=== PATIENT | female | born 1950 | race Caucasian/White ===

== ENCOUNTER → 2019-05-26 16:12 | Outpatient (CLI) | payer MEDICARE, OTHER, SELFPAY ==
--- NOTE | 2019-05-26 | DI.MG.S_ITS ---
BILATERAL DIGITAL SCREENING MAMMOGRAM 3D/2D WITH CAD: 05/26/2019 CLINICAL: Routine screening. Family history of breast cancer. Comparison is made to exams dated: 08/05/2017 mammogram, 08/23/2015 mammogram, and 03/21/2014 mammogram - [facility]. There are scattered fibroglandular elements in both breasts. Current study was also evaluated with a Computer Aided Detection (CAD) system. There are mole markers on the left breast. No significant masses, calcifications, or other findings are seen in either breast. There has been no significant interval change. IMPRESSION: NEGATIVE There is no mammographic evidence of malignancy. A 1 year screening mammogram is recommended. This exam was interpreted at Station ID: [id number]. NOTE: For mammograms, a report in lay terms will be sent to the patient. Approximately 15% of breast malignancies will not be visualized mammographically. In the management of a palpable breast mass, a negative mammogram must not discourage biopsy of a clinically suspicious lesion. Electronically Signed By: Jake huitron/bhavin:05/27/2019 05:12:05 letter sent: Normal Exam ACR BI-RADS Category 1: Negative 3341F
== END ==
PROVIDERS: PCP Family Medicine; Visit Provider Family Medicine
DX: Z12.31 Encounter for screening mammogram for malignant neoplasm of breast (principal); Z80.3 Family history of malignant neoplasm of breast
CPT/HCPCS: 77063; 77067

== ENCOUNTER → 2020-10-15 11:54 | Outpatient (CLI) | payer MEDICARE, OTHER, SELFPAY ==
--- NOTE | 2020-10-15 11:55 | DI.RAD.S_ITS ---
PROCEDURE: XR LUMBAR SPINE MIN 4V INDICATIONS: Right lower extremity radiculopathy TECHNIQUE: 5 views of the lumbar spine were acquired, including bilateral oblique views. COMPARISON: None. FINDINGS: Bones: 5 nonrib-bearing vertebrae are present. There is normal bony alignment. No vertebral body compression fractures. No suspicious bony lesions. Moderate L5-S1 degenerative disc disease. Mild L1-L2, L2-L3, L3-L4 and L4-L5 degenerative disc disease. Moderate L3-L4, L4-L5 and L5-S1 facet arthropathy. Mild L2-L3 facet arthropathy. Soft tissues: Overlying bowel gas pattern is normal. No suspicious soft tissue calcifications. Oblique images: No pars defects. IMPRESSION: 1. Multilevel degenerative disc disease. 2. Multilevel facet arthropathy. 3. No fracture. No acute osseous lesion. If symptoms and/or clinical suspicion for pathology persists, evaluation with MRI should be considered for further assessment. Dictated by: Ling Landers MD, PhD on 10/15/2020 at 13:05 Approved by: Ling Landers MD, PhD on 10/15/2020 at 13:07
== END ==
PROVIDERS: PCP Family Medicine; Referring Provider Physical Medicine & Rehabilitation; Visit Provider Physical Medicine & Rehabilitation
DX: M51.16 Intervertebral disc disorders with radiculopathy, lumbar region (principal); M51.17 Intervertebral disc disorders with radiculopathy, lumbosacral region; M47.26 Other spondylosis with radiculopathy, lumbar region; M47.27 Other spondylosis with radiculopathy, lumbosacral region; R26.81 Unsteadiness on feet
CPT/HCPCS: 72110; 99214

== ENCOUNTER → 2020-10-18 14:47 | Outpatient (CLI) | payer MEDICARE, OTHER, SELFPAY ==
--- NOTE | 2020-10-18 14:51 | DI.MRI.S_ITS ---
PROCEDURE: MR LUMBAR SPINE WO CON INDICATIONS: L5 radiculopathy [id number] TECHNIQUE: Noncontrast sagittal T1 spin echo and T2 fast echo, sagittal STIR, axial T1 and T2 fast spin echo through the lumbar spine. In cases with scoliosis, additional coronal T2 fast spin echo may be performed. COMPARISON: [facility], CT, ABDOMEN/PELVIS WITH CONTRAST, 07/29/2017, 10:29. [facility], CR, XR LUMBAR SPINE WITH OBLIQUES, 04/05/2018, 9:34. [facility], CR, XR LUMBAR SPINE MIN 4V, 10/15/2020, 12:02. FINDINGS: Image quality: Excellent. Alignment and Curvature: There is minimal retrolisthesis seen at the L5-S1 level. Bone Marrow: Marrow is of normal overall signal. Scattered foci are seen, which are hyperintense on T1-weighted and T2-weighted imaging, which are most consistent with benign vertebral body hemangiomas. No acute vertebral body compression fractures. Spinal Cord: Conus medullaris terminates at the L1 level. Visualized cord demonstrates normal signal and size. Paraspinous Soft Tissues: No paravertebral masses. T12-L1: Normal appearance. L1-L2: No significant abnormality is seen. L2-L3: Jlre-kn-tgxgdixy loss of disc height and disc signal can be seen. Mild to moderate disc bulge is seen. There is mild left-sided and nhpd-lu-ilggsugn right-sided neural foraminal narrowing seen. Mild central canal narrowing is seen. L3-L4: Mild loss of disc height is seen. Loss of disc signal is seen. Mild to moderate disc bulge is seen. There is at least moderate facet hypertrophy seen. Associated hypertrophy of the ligamentum flavum can be seen. There is bvgl-gf-qyloyoee right-sided and no significant left-sided neural foraminal narrowing seen. Moderate central canal narrowing is seen. L4-L5: The disc height is well-preserved. Loss of disc signal is seen at this level. Moderate disc bulge is seen, which is eccentric to the right. There is a right foraminal disc protrusion, as on series 4 image 26 and on series 2, image 6. There is a focal annular fissure seen posteriorly. Moderate facet hypertrophy is seen, right worse than left. There is moderate right-sided and bwfn-ck-mfhepizy left-sided neural foraminal narrowing seen. Moderate central canal narrowing is seen. L5-S1: Moderate loss of disc height is seen. Loss of disc signal is seen. Reactive marrow endplate changes are seen, which demonstrate mixed T1 weighted and T2-weighted signal, and are attributed to a combination of edema and fatty metaplasia (Modic type I and Modic type II changes). Mild to moderate disc bulge is seen at this level. Mild facet joint hypertrophy is seen. Mild bilateral neural foraminal narrowing is seen. No significant central canal narrowing can be seen. IMPRESSION: Multiple levels of lumbar spine degenerative change are seen. Dictated by: Dimitry Dhaliwal M.D. on 10/18/2020 at 15:56 Approved by: Dimitry Dhaliwal M.D. on 10/18/2020 at 16:01
== END ==
PROVIDERS: PCP Family Medicine; Referring Provider Physical Medicine & Rehabilitation; Visit Provider Physical Medicine & Rehabilitation
DX: M47.26 Other spondylosis with radiculopathy, lumbar region (principal)
CPT/HCPCS: 72148

== ENCOUNTER → 2020-10-22 14:36 | Outpatient (CLI) | payer MEDICARE, OTHER, SELFPAY ==
[2020-10-22 16:23] LABS: COVID19 -Nasal RAPID Negative (Negative)
== END ==
PROVIDERS: PCP Family Medicine; Visit Provider Physical Medicine & Rehabilitation
DX: Z20.822 Contact with and (suspected) exposure to COVID-19 (principal)
CPT/HCPCS: 87635; C9803

== ENCOUNTER 2020-10-23 13:24 | Outpatient (CLI) | payer MEDICARE, OTHER, SELFPAY ==
[2020-10-23] VITALS (8 sets, daily range): BP systolic 101–139; BP diastolic 59–86; PULSE 79–103; RESP 16–30; TEMP 36.3; O2SAT 95–100
--- NOTE | 2020-10-23 13:26 | DI.RAD.S_ITS ---
PROCEDURE: PAIN L/S TRANSFORAMINAL INJECT INDICATIONS: SPONDYLOSIS COMPARISON: [facility], CR, XR LUMBAR SPINE MIN 4V, 10/15/2020, 12:02. [facility], MR, MR LUMBAR SPINE WO CON, 10/18/2020, 15:39. FINDINGS: Fluoroscopic spot filming was performed to verify placement of a spinal needle at the L5-S1 level, as labeled on the films. Appropriate location of the needle tip was confirmed by injection of iodinated contrast. IMPRESSION: No significant intraprocedural abnormality. Dictated by: Dimitry Dhaliwal M.D. on 10/23/2020 at 14:50 Approved by: Dimitry Dhaliwal M.D. on 10/23/2020 at 14:50
[2020-10-23] MEDS: MIDAZOLAM 5 MG/5 ML VIAL IV (14:20)
[2020-10-23] MEDS: fentaNYL 100 MCG/2 ML INJ 50 MCG IV (14:20)
[2020-10-23] MEDS: BUPIVACAINE 0.25% (PF) VIAL 2 ML INJ (14:26)
[2020-10-23] MEDS: BETAMETHASONE 30 MG/5 ML MDV 6 MG INJ (14:26)
[2020-10-23] MEDS: IOPAMIDOL 15 ML VIAL 3 ML INJ (14:26)
[2020-10-23] MEDS: DEXAMETHASONE 10 MG/ML VIAL 20 MG INJ (14:27)
--- NOTE | 2020-10-23 14:33 | PM.PROC.IR.1 ---
Date/Time/Diagnoses Date of procedure: 10/23/20 Time of procedure: 14:33 Pre-procedure diagnosis: 1. FORAMINAL STENOSIS WITH LE SYMPTOMS Post-procedure diagnosis: same Procedure Notes Procedure: 1. FLUOROSCOPICALLY GUIDED CONTRAST CONTROLLED TRANSFORAMINAL EPIDURAL STEROID INJECTION - RIGHT L5/S1 TFESI Indications: Sanjana is referred by Dr. Preston for treatment of Foraminal Stenosis with right LE Symptoms Physician: Jareth Carrera Total Fluoroscopy time (seconds): 8 Total sedation minutes: 10 Complications: none Procedure in detail & Post-procedure care: FINDINGS Foraminal Nerve Root Compression secondary to disc disease and facet hypertrophy DESCRIPTION OF PROCEDURE Following review of allergy and review of potential side effects and complications, including, but not necessarily limited to, infection, allergic reaction, local tissue breakdown, stroke, temporary or permanent nerve injury, paralysis, and possible , the patient indicated that the patient understood and agreed to proceed. An informed consent document was signed by the patient, witnessed by a nurse, and placed in the patient's chart. Additionally, other treatment options including medications, modalities, and physical therapy were reviewed with the patient. After review of previous anaesthesic history and IV conscious sedation the patient was deemed safe to proceed with today?s procedure with IV conscious sedation as ASA class II designation. Safety time-out was performed to confirm patient ID, procedure to be performed and site of procedure. IV sedation was accomplished with a combination of 3mg of Versed and 50mcg of Fentanyl was administered by the RN after DO order, titrated to patient comfort during the course of the procedure while the patient remained responsive to all verbal commands In the prone position following sterile prep and drape of the lumbar region, the right L5/S1 posterior neuroforamen was identified fluoroscopically. The skin was anesthetized via a 25-gauge 1.5-inch needle with 1% lidocaine solution. At this point, a 25-gauge 3.5-inch spinal needle was atraumatically introduced and advanced under fluoroscopic guidance through the posterior right L5/S1 neuroforamen to approximately the anterior aspect of the canal. Depth was confirmed on lateral view. Following negative aspiration, injection of approximately 1.5cc of Isovue 200 under live fluoroscopy in the AP view confirmed excellent flow along the nerve root, into the epidural space without vascular or intrathecal uptake observed Radiological data, including multiple fluoroscopic views of the lumbosacral spine, reveal a spinal needle at the right L5/S1 posterior neuroforamen. Subsequent views show flow of contrast material flowing superiorly and inferiorly along the nerve root confirming epidural flow. Subsequently, a test dose of 1.5cc of 1% lidocaine solution was administered and patient was observed for two minutes for signs or symptoms of complications, including abdominal pain, shortness of breath, bilateral upper or lower extremity weakness, nausea and vomiting, prior to steroid injection. At this point, a total of 3cc or 20mg of dexamethasone and 6mg betamethasone was injected without incident. The procedure tolerated the procedure well without signs or symptoms of complications prior to transfer to the recovery area continued monitoring without incident. The patient was then transferred to the recovery area where they were observed for an appropriate time after the injection. The patient reported a VAS score of 7 prior to the procedure and a post-procedure VAS of 0. POST OP INSTRUCTIONS The patient was provided a Pain Log to continue to record their response to the target-specific procedure prior to follow-up visit with their referring physician. Additionally, specific post-injection care instructions and a contact number to our office were provided if concerns arise regarding possible complications associated with the procedure are suspected.
== END 2020-10-23 14:55 | disposition home or self-care (01) ==
LOC: RAD 13:25
PROVIDERS: PCP Family Medicine; Referring Provider Physical Medicine & Rehabilitation; Visit Provider Physical Medicine & Rehabilitation
DX: M48.07 Spinal stenosis, lumbosacral region (principal); M51.17 Intervertebral disc disorders with radiculopathy, lumbosacral region
CPT/HCPCS: 64483; 99152; J0702; J1100; J2250; J3010

== ENCOUNTER → 2021-08-17 13:14 | Outpatient (CLI) | payer MEDICARE, OTHER, SELFPAY ==
--- NOTE | 2021-08-17 13:15 | DI.MG.S_ITS ---
BILATERAL DIGITAL SCREENING MAMMOGRAM 3D/2D WITH CAD: 08/17/2021 CLINICAL: Routine screening. Family history of breast cancer. Comparison is made to exams dated: 05/26/2019 mammogram, 08/05/2017 mammogram, and 08/23/2015 mammogram - [facility]. There are scattered fibroglandular elements in both breasts. Current study was also evaluated with a Computer Aided Detection (CAD) system. There are mole markers on the left breast. No significant masses, calcifications, or other findings are seen in either breast. There has been no significant interval change. IMPRESSION: NEGATIVE There is no mammographic evidence of malignancy. A 1 year screening mammogram is recommended. This exam was interpreted at Station ID: [id number]. NOTE: For mammograms, a report in lay terms will be sent to the patient. Approximately 15% of breast malignancies will not be visualized mammographically. In the management of a palpable breast mass, a negative mammogram must not discourage biopsy of a clinically suspicious lesion. Electronically Signed By: Heber whitten/bhavin:08/19/2021 07:49:21 letter sent: Normal Exam ACR BI-RADS Category 1: Negative 3341F
== END ==
PROVIDERS: PCP Family Medicine; Referring Provider Family Medicine; Visit Provider Family Medicine
DX: Z12.31 Encounter for screening mammogram for malignant neoplasm of breast (principal); Z80.3 Family history of malignant neoplasm of breast
CPT/HCPCS: 77063; 77067

== ENCOUNTER → 2021-08-21 09:57 | Outpatient (CLI) | payer MEDICARE, OTHER, SELFPAY ==
--- NOTE | 2021-08-21 | DI.RAD.S_ITS ---
PROCEDURE: XR DEXA AXIAL SKELETON INDICATIONS: Asymptomatic menopausal state COMPARISON: None. FINDINGS: This blank DEXA report has been sent in error by the PACS system. The correct and complete report will be forthcoming in 1-2 days. Thank you for your patience and understanding. Dictated by: Ling Landers MD, PhD on 08/21/2021 at 18:23 Approved by: Ling Landers MD, PhD on 08/21/2021 at 18:23
== END ==
PROVIDERS: PCP Family Medicine; Referring Provider Family Medicine; Visit Provider Family Medicine
DX: Z78.0 Asymptomatic menopausal state
CPT/HCPCS: 77080

== ENCOUNTER 2021-09-13 09:50 | Outpatient (CLI) | payer MEDICARE, OTHER, SELFPAY | END 2022-01-15 13:38 | disposition home or self-care (01) | LOC: PHYS 09:50 | PROVIDERS: Family Provider Family Medicine; PCP Family Medicine; Referring Provider Physical Medicine & Rehabilitation; Visit Provider Physical Medicine & Rehabilitation | DX: G57.31 Lesion of lateral popliteal nerve, right lower limb (principal); R26.81 Unsteadiness on feet | CPT/HCPCS: 95886; 95910 ==

== ENCOUNTER → 2021-10-07 11:33 | Outpatient (CLI) | payer MEDICARE, OTHER, SELFPAY ==
--- NOTE | 2021-10-07 | DI.MRI.S_ITS ---
PROCEDURE: MR LOWER LEG RT WO/W CON INDICATIONS: NEURITIS OF FOOT, RIGHT TECHNIQUE: Noncontrast coronal T1 spin echo and STIR, sagittal T1 spin echo with fat saturation and STIR, axial T1 spin echo and T2 fast spin echo with fat saturation. After the administration of contrast, axial/sagittal/coronal T1 spin echo with fat saturation through the right lower extremity . COMPARISON: None. FINDINGS: Image quality: Excellent. Bones: The visualized bone marrow demonstrates normal signal on all sequences. The overlying cortex appears intact. No abnormal intraosseous enhancement. Soft tissues: No soft tissue masses are visualized. The scanned muscles demonstrate normal overall bulk and internal signal. Subcutaneous tissues appear normal as well. No abnormal soft tissue enhancement. IMPRESSION: No appreciable muscle atrophy or evidence of denervation. Dictated by: Gabriel King M.D. on 10/07/2021 at 13:16 Approved by: Gabriel King M.D. on 10/07/2021 at 13:32
--- NOTE | 2021-10-07 14:58 | DI.ECHO.S_ITS ---
[facility] +---------+ : : [address] : : : : [id number] : : : : Phone: [phone]+ Echocardiogram Report + + :Name: CASSIE ABDI Study Date: 10/07/2021 Height: 69.5 in: :[facility] ReadingLocation: Weight: 183 lb : : Gender: Female BSA: 2.0 m2 : :: 1950 Age: 71 yrs BP: 137/8 mmHg : :Reason For Study: Hypertension : :Ordering Physician: Dr. Phelps : :Mohan Performed By: Anam Zamora : :Referring: Dr. Mattie Preston : + + Interpretation Summary Mild concentric left ventricular hypertrophy with ejection fraction 60-65%. Mild aortic valve sclerosis. Mild aortic regurgitation. Mild mitral annular calcification. Mildly enlarged ascending aorta. Procedure: A two-dimensional transthoracic echocardiogram with color flow and Doppler was performed. The study quality was technically adequate. There is no prior echocardiogram noted for this patient. The patient was in sinus tachycardia with heart rates between 88 - 100 bpm during the exam. Left Ventricle: The left ventricle is normal in size. There is mild concentric left ventricular hypertrophy. The ejection fraction is estimated to be 60-65%. There are no focal wall motion abnormalities. Right Ventricle: The right ventricle is normal in size and function. Atria: Both atria are normal in size. There is no Doppler evidence for an interatrial shunt. Mitral Valve: There is mild mitral annular calcification. There is trace mitral regurgitation. Aortic Valve: The aortic valve is trileaflet. The aortic valve opens well. There is mild aortic valve sclerosis. There is mild aortic regurgitation. Tricuspid Valve: The tricuspid valve is normal. There is a trace or physiologic amount of tricuspid regurgitation. Pulmonary artery pressures cannot be estimated because of the lack of a measurable TR jet velocity but the IVC suggests a CVP of around 3 mmHg. Pulmonic Valve: The pulmonic valve leaflets are thin and pliable; valve motion is normal. Great Vessels: The aortic root is borderline dilated. The ascending aorta is mildly enlarged. The aortic arch is normal in size. The IVC is of normal diameter and collapses greater than 50% with a sniff. This suggests a low right atrial pressure of 3 mm Hg. Pericardium/ Pleura There is no pericardial effusion. There is an anterior echo-free space consistent with a fat pad. There is no pleural effusion. MMode/2D Measurements & Calculations LVIDd: 3.5 cm LVOT diam: 1.8 cm LVIDs: 2.1 cm Ao root diam: 3.4 cm FS: 40.0 % asc Aorta Diam: 3.7 cm IVSd: 1.3 cm Ao Arch Diam (Prox Trans): 3.1 cm LVPWd: 1.0 cm LV pozo. diameter/BSA (cm/m^2): 1.7 LV sys. diameter/BSA (cm/m^2): 1.0 LA A2 area: 16.9 cm2 RA long axis: 5.6 cm LA A4 area: 10.8 cm2 LA length (vol): 4.8 cm LA vol: 32.0 ml LA vol index: 16.0 ml/m2 TAPSE_phl: 2.1 cm Doppler Measurements & Calculations Ao V2 max: 133.0 cm/sec LVOT Max Jorje: 140.0 cm/sec Ao V2 mean: 113.0 cm/sec LV V1 max P.8 mmHg Ao max P.0 mmHg LV V1 VTI: 23.4 cm Ao mean P.0 mmHg MELVA(I,D): 2.6 cm2 Ao V2 VTI: 23.3 cm MELVA(V,D): 2.7 cm2 sev ratio: 1.0 MELVA indexed to BSA (cm^2/m^2): 1.3 MV E max jorje: 50.3 cm/sec PA V2 max: 96.7 cm/sec MV A max jorje: 86.4 cm/sec PA V2 mean: 64.4 cm/sec MV E/A: 0.58 PA mean P.0 mmHg Med Peak E' Ojrje: 7.7 cm/sec PA pr(Accel): 20.5 mmHg E/E' med: 6.5 Lat Peak E' Jorje: 9.3 cm/sec E/E' lat: 5.4 E/e' average: 6.0 MV dec time: 0.19 sec SV(LVOT): 59.5 ml AV VR_phl: 1.1 MELVA(VTI)/BSA_phl: 1.3 MV P1/2t-pr_phl: 57.0 msec Electronically signed by: Mahendra Stock Physician:10/07/2021 03:08 PM
== END ==
PROVIDERS: Family Provider Family Medicine; PCP Family Medicine; Referring Provider Podiatrist Foot & Ankle Surgery; Visit Provider Podiatrist Foot & Ankle Surgery
DX: I35.1 Nonrheumatic aortic (valve) insufficiency (principal); I77.89 Other specified disorders of arteries and arterioles; G57.91 Unspecified mononeuropathy of right lower limb; I10 Essential (primary) hypertension
CPT/HCPCS: 73720; 93306

== ENCOUNTER → 2022-12-31 08:10 | Outpatient (CLI) | payer MEDICARE, OTHER, SELFPAY ==
--- NOTE | 2022-12-31 | DI.RAD.S_ITS ---
PROCEDURE: XR LUMBAR SPINE 2-3V INDICATIONS: Low back pain, unspecified TECHNIQUE: 3 views of the lumbar spine were acquired. COMPARISON: [facility], , XR LUMBAR SPINE MIN 4V, 10/15/2020, 12:02. FINDINGS: Bones: 5 inv-oec-aqfltzg vertebrae are present. There is trace retrolisthesis of L5 on S1. Severe disc and moderate to severe foraminal narrowing is present L5-S1. Otherwise, scattered qanc-qz-kfcsqlgq areas of disc space narrowing are present as well as small anterior osteophytes throughout the lumbar spine. Degenerative changes at L5-S1 has been progressive compared to prior exam.. No vertebral body compression fractures. No suspicious bony lesions. Soft tissues: Overlying bowel gas pattern is normal. No suspicious soft tissue calcifications. IMPRESSION: Degenerative changes most severe at L5-S1, progressive. Dictated by: Kandace Lawrence M.D. on 12/31/2022 at 9:06 Approved by: Kandace Lawrence M.D. on 12/31/2022 at 9:06
== END ==
PROVIDERS: Family Provider Family Medicine; PCP Family Medicine; Referring Provider Family Medicine; Visit Provider Family Medicine
DX: M54.50 Low back pain, unspecified (principal); M47.817 Spondylosis without myelopathy or radiculopathy, lumbosacral region
CPT/HCPCS: 72100

== ENCOUNTER → 2023-04-15 14:51 | Outpatient (CLI) | payer MEDICARE, OTHER, SELFPAY ==
--- NOTE | 2023-04-15 14:52 | DI.MRI.S_ITS ---
PROCEDURE: MR LUMBAR SPINE WO CON INDICATIONS: Low back pain, unspecified TECHNIQUE: Noncontrast sagittal T1 spin echo and T2 fast echo, sagittal STIR, and T2 fast spin echo through the lumbar spine. In cases with scoliosis, additional coronal T2 fast spin echo may be performed. COMPARISON: [facility], MR, MR LUMBAR SPINE WO CON, 10/18/2020, 15:39. FINDINGS: Image quality: Excellent. Alignment and Curvature: Unchanged alignment. Trace anterolisthesis of L3 on L4. Trace retrolisthesis of L5 on S1. Bone Marrow: Marrow is of normal overall signal. No acute vertebral body compression fractures. Spinal Cord: Conus medullaris terminates at the L1-L2 level. Visualized cord demonstrates normal signal and size. Paraspinous Soft Tissues: No paravertebral masses. T12-L1: Normal appearance. L1-L2: Interval development of a shallow somewhat broad-based right paracentral to lateral disc protrusion, with some high signal within it suggesting possible relative acuity. There is no impingement on nerve roots in the canal. There is moderate narrowing of the right foramen without foraminal nerve root impingement. No canal stenosis. No significant left foraminal stenosis. L2-L3: Disc bulge. Facet hypertrophy. No significant central canal stenosis. No significant foraminal stenosis. L3-L4: Slight interval progression. Disc bulge. Facet and ligament hypertrophy. Canal stenosis is progressed, still moderate. No significant foraminal stenosis. L4-L5: Disc bulge. Facet and ligament hypertrophy. Unchanged moderate canal stenosis. No significant foraminal stenosis. L5-S1: Unchanged. Disc height loss. Retrolisthesis of L5 on S1. Minimal disc bulge. Facet hypertrophy. No canal stenosis or foraminal stenosis. IMPRESSION: 1. Multilevel underlying facet arthropathy. 2. Interval development of a shallow right paracentral to lateral disc protrusion at L1-L2, of uncertain clinical significance. It does not compress on nerve root structures. Is likely relatively acute. 3. Slight interval progression of canal stenosis. This occurs at L3-L4. Canal stenosis is moderate at L3-L4 and moderate at L4-L5. Dictated by: Jose Gutierrez M.D. on 04/16/2023 at 9:17 Approved by: Jose Gutierrez M.D. on 04/16/2023 at 9:26
== END ==
PROVIDERS: Family Provider Family Medicine; PCP Family Medicine; Referring Provider Family Medicine; Visit Provider Family Medicine
DX: M47.816 Spondylosis without myelopathy or radiculopathy, lumbar region (principal); M47.817 Spondylosis without myelopathy or radiculopathy, lumbosacral region; M48.061 Spinal stenosis, lumbar region without neurogenic claudication; M51.26 Other intervertebral disc displacement, lumbar region
CPT/HCPCS: 72148

== ENCOUNTER → 2023-06-25 15:16 | Outpatient (CLI) | payer MEDICARE, OTHER, SELFPAY ==
--- NOTE | 2023-06-25 | DI.MG.S_ITS ---
BILATERAL DIGITAL SCREENING MAMMOGRAM 3D/2D WITH CAD: 06/25/2023 CLINICAL: Routine screening. Family history of breast cancer. Comparison is made to exams dated: 08/17/2021 mammogram, 05/26/2019 mammogram, 08/05/2017 mammogram, and 08/23/2015 mammogram - [facility]. There are scattered areas of fibroglandular density in both breasts (category b / 25%-50% glandular tissue). Current study was also evaluated with a Computer Aided Detection (CAD) system. There are benign post operative findings in the right breast. There are mole markers on the left breast. No significant masses, calcifications, or other findings are seen in either breast. There has been no significant interval change. IMPRESSION: BENIGN There is no mammographic evidence of malignancy. A 1 year screening mammogram is recommended. Based on the Tyrer Cuzick model (a risk assessment model) the patient's lifetime risk is 9.4% and her 10 year risk is 8.5%. According to the ACR, ACS, and NCCN guidelines, an annual breast MRI exam along with mammogram is recommended if the patient's lifetime risk is 20% or greater. This exam was interpreted at Station ID: [id number]. NOTE: For mammograms, a report in lay terms will be sent to the patient. Approximately 15% of breast malignancies will not be visualized mammographically. In the management of a palpable breast mass, a negative mammogram must not discourage biopsy of a clinically suspicious lesion. Electronically Signed By: Isaiah lundberg/bhavin:06/26/2023 10:23:19 letter sent: Normal Exam ACR BI-RADS Category 2: Benign Finding(s) 3342F
== END ==
PROVIDERS: Family Provider Family Medicine; PCP Family Medicine; Referring Provider Family Medicine; Visit Provider Family Medicine
DX: Z12.31 Encounter for screening mammogram for malignant neoplasm of breast (principal); Z80.3 Family history of malignant neoplasm of breast
CPT/HCPCS: 77063; 77067

== ENCOUNTER → 2024-06-07 09:09 | Outpatient (CLI) | payer MEDICARE, OTHER, SELFPAY ==
--- NOTE | 2024-06-07 09:10 | DI.ECHO.S_ITS ---
[facility] : : [address] : : [place] : : [id number] : : Phone: [phone] Echocardiogram Report + + :Name: CASSIE ABDI Study Date: 06/07/2024 Height: 70 in : :Hospital ReadingLocation: Weight: 185 lb : : Gender: Female BSA: 2.0 m2 : :: 1950 Age: 74 yrs BP: 125/82 mmHg: :Reason For Study: PRIMARY HYPERTENSION : :Ordering Physician: ADITYA, : :ALISON Performed By: Florencia Cardenas : :Referring: ALISON BURGESS : + + Interpretation Summary The left ventricle is normal in size and wall thickness. Left ventricular systolic function appears normal without focal wall motion abnormalities. The ejection fraction is estimated to be 55-60%. Diastolic parameters suggest a relaxation abnormality of the left ventricle, consistent with probable normal filling pressures. The right ventricle is normal in size and function. The left atrial size is normal. The ascending aorta is mild-moderately enlarged. Procedure: A two-dimensional transthoracic echocardiogram with color flow and Doppler was performed. The study quality was technically adequate. Comparison is made with the echocardiogram of 10/07/2021. The patient was in sinus rhythm with heart rates between 75-85 bpm during the exam. Left Ventricle: The left ventricle is normal in size and wall thickness. Left ventricular systolic function appears normal without focal wall motion abnormalities. The ejection fraction is estimated to be 55-60%. Diastolic parameters suggest a relaxation abnormality of the left ventricle, consistent with probable normal filling pressures. Right Ventricle: The right ventricle is normal in size and function. Atria: The left atrial size is normal. Right atrial size is normal. There is no Doppler evidence for an interatrial shunt. Mitral Valve: There is mild mitral annular calcification. There is trace mitral regurgitation. Aortic Valve: The aortic valve is trileaflet. The aortic valve opens well. There is no aortic valve stenosis. There is mild aortic regurgitation. Tricuspid Valve: The tricuspid valve is normal in structure and function. There is trace tricuspid regurgitation. Pulmonary artery pressures cannot be estimated because of the lack of a measurable TR jet velocity. Pulmonic Valve: The pulmonic valve leaflets are thin and pliable; valve motion is normal. There is trace pulmonic regurgitation. There is no significant valvular heart disease. Great Vessels: The aortic root is normal size. The ascending aorta is mild- moderately enlarged. The IVC is of normal diameter and collapses greater than 50% with a sniff. This suggests a low right atrial pressure of 3 mm Hg. Pericardium/ Pleura There is no pericardial effusion. There is no pleural effusion. MMode/2D Measurements & Calculations LVIDd: 4.1 cm LVOT diam: 2.0 cm LVIDs: 2.6 cm Ao root diam: 3.5 cm FS: 37.2 % asc Aorta Diam: 4.2 cm IVSd: 1.0 cm Ao Arch Diam (Prox Trans): 2.8 cm LVPWd: 0.65 cm LV pozo. diameter/BSA (cm/m^2): 2.0 LV sys. diameter/BSA (cm/m^2): 1.3 LA A2 area: 16.3 cm2 RA long axis: 4.7 cm LA A4 area: 15.0 cm2 RA area: 14.7 cm2 LA length (vol): 4.8 cm RA vol: 38.6 ml LA vol: 43.0 ml RA : 19.1 ml/m2 LA vol index: 21.3 ml/m2 IVC diam: 1.3 cm RVD1 (basal): 3.6 cm TAPSE: 1.7 cm Doppler Measurements & Calculations Ao V2 max: 157.0 cm/sec LVOT Max Jorje: 89.0 cm/sec Ao V2 mean: 113.1 cm/sec LV V1 max P.2 mmHg Ao max P.9 mmHg LV V1 VTI: 17.2 cm Ao mean P.7 mmHg MELVA(I,D): 1.7 cm2 Ao V2 VTI: 30.6 cm MELVA(V,D): 1.7 cm2 sev ratio: 0.56 MELVA indexed to BSA (cm^2/m^2): 0.85 AI P1/2t: 739.7 msec AI dec slope: 144.7 cm/sec2 MV E max jorje: 36.9 cm/sec PA V2 max: 93.3 cm/sec MV A max jorje: 69.8 cm/sec PA V2 mean: 61.9 cm/sec MV E/A: 0.53 PA mean P.7 mmHg Med Peak E' Jorje: 6.7 cm/sec PA pr(Accel): 41.3 mmHg E/E' med: 5.5 Lat Peak E' Jorje: 8.1 cm/sec E/E' lat: 4.6 E/e' average: 5.0 MV dec time: 0.28 sec SVLVOT): 52.6 ml Reading Physician:04:20 PM
== END ==
PROVIDERS: Family Provider Family Medicine; PCP Family Medicine; Referring Provider Family Medicine; Visit Provider Family Medicine
DX: I34.81 Nonrheumatic mitral (valve) annulus calcification (principal); I34.0 Nonrheumatic mitral (valve) insufficiency; I77.89 Other specified disorders of arteries and arterioles; I51.7 Cardiomegaly; I10 Essential (primary) hypertension
CPT/HCPCS: 93306

== ENCOUNTER → 2024-09-29 08:53 | Outpatient (CLI) | payer MEDICARE, OTHER, SELFPAY ==
--- NOTE | 2024-09-29 08:55 | DI.US.S_ITS ---
PROCEDURE: US ARTERIAL DUPLEX LE BI INDICATIONS: SPINAL STENOSIS LUMBAR REGION TECHNIQUE: Color and pulse Doppler interrogation was performed of both lower extremity arterial systems, with image documentation. COMPARISON: None. FINDINGS: Right lower extremity: Common femoral artery: 113 cm/sec, with triphasic flow. Deep femoral artery: 46 cm/sec, with triphasic flow. Proximal superficial femoral artery: 71 cm/sec, with triphasic flow. Mid superficial femoral artery: 80 cm/sec, with triphasic flow. Distal superficial femoral artery: 53 cm/sec, with triphasic flow. Popliteal artery: 53 cm/sec, with triphasic flow. Posterior tibial artery: 59 cm/sec, with triphasic flow. Anterior tibial artery/dorsalis pedis: 14 cm/sec, with biphasic flow. Elena-scale imaging description: Minimal degree of plaque involving the distal right common femoral artery. Left lower extremity: Common femoral artery: 99 cm/sec, with triphasic flow. Deep femoral artery: 45 cm/sec, with triphasic flow. Proximal superficial femoral artery: 58 cm/sec, with triphasic flow. Mid superficial femoral artery: 61 cm/sec, with triphasic flow. Distal superficial femoral artery: 50 cm/sec, with triphasic flow. Popliteal artery: 42 cm/sec, with triphasic flow. Posterior tibial artery: 64 cm/sec, with triphasic flow. Anterior tibial artery/dorsalis pedis: 68 cm/sec, with triphasic flow. Elena-scale imaging description: No significant plaque involve the left lower extremity arterial system. IMPRESSION: No hemodynamically significant stenosis involving bilateral lower extremity arterial systems. Dictated by: Emmanuel Foley M.D. on 09/29/2024 at 15:24 Approved by: Emmanuel Foley M.D. on 09/29/2024 at 15:26
== END ==
LOC: US 08:54
PROVIDERS: Family Provider Family Medicine; PCP Family Medicine; Referring Provider Family Medicine; Visit Provider Family Medicine
DX: M48.062 Spinal stenosis, lumbar region with neurogenic claudication (principal)
CPT/HCPCS: 93925

== ENCOUNTER → 2025-05-27 12:32 | Outpatient (CLI) | payer MEDICARE, OTHER, SELFPAY | LOC: LAB 12:33 | PROVIDERS: Family Provider Family Medicine; PCP Family Medicine; Visit Provider Physician Assistant Medical | DX: R30.0 Dysuria (principal) | CPT/HCPCS: 87077; 87086; 87186 ==